=== PATIENT | female | born 1995 | race Two or more races ===

== ENCOUNTER 2017-02-16 12:15 | Emergency (ER) | payer MEDICAID, OTHER ==
[~2017-02-16] VITALS: Ht 162.6 cm; Wt 71.7 kg
--- NOTE | 2017-02-16 12:20 | NUR ---
PT TO ED ROOM 01. ABDOMINAL PAIN, NOTED SINCE 0600 AM, WITH ASS. NUASEA & VOMITING. A/A/O. NAQD. VS WNL. SEEN AND EVALUATED BY ED PROVIDER. SIDE RAISL UP. HOB ELEVATED. CONNECTED TO MONITOR.
[2017-02-16] MEDS ORDERED: ONDANSETRON HCL/PF 4 MG/2 ML VIAL ONE (12:44)
--- NOTE | 2017-02-16 12:49 | NUR ---
LINE STARTED ON R FA G 20. PT MEDICATED ORDERED
[2017-02-16 12:52] LABS: BASOPHILS % (AUTO) 0.2 % (0.0-2.0); EOSINOPHILS # (AUTO) 0.1 /CMM (0.0-0.7); EOSINOPHILS % (AUTO) 0.6 % (0.0-6.0); HEMATOCRIT 25 % (33-45); HEMOGLOBIN 7.9 g/dL (11.5-14.8); LYMPHOCYTES # (AUTO) 0.9 /CMM (0.8-4.8); LYMPHOCYTES % (AUTO) 8.2 % (20.0-44.0); MEAN CORPUSCULAR HEMOGLOBIN 21 PG (26.0-33.0); MEAN CORPUSCULAR HGB CONC 32 g/dl (31.0-36.0); MEAN CORPUSCULAR VOLUME 66 fL (82-100); MONOCYTES # (AUTO) 0.3 /CMM (0.1-1.30); MONOCYTES % (AUTO) 2.9 % (2.0-12.0); NEUTROPHILS # (AUTO) 9.9 /CMM (1.8-8.9); NEUTROPHILS % (AUTO) 88.1 % (43.0-81.0); PLATELET COUNT (AUTO) 248 /CMM (150-450); RDW COEFFICIENT OF VARIATION 20.2 (11.5-15.0); RED BLOOD CELL COUNT(AUTO) 3.76 MIL/uL (4.0-5.2); WHITE BLOOD COUNT (AUTO) 11.2 K/uL (4.3-11.0)
[2017-02-16 12:57] LABS: CALCIUM, SERUM 8.4 mg/dL (8.5-10.1); CREATININE 0.6 mg/dL (0.6-1.3); POTASSIUM 3.7 mmol/L (3.5-5.1)
[2017-02-16] MEDS ORDERED: ONDANSETRON HCL/PF - ER 4 MG/2 ML VIAL IV ONE (13:00)
[2017-02-16] MEDS ORDERED: IV NS 0.9% 1,000 ML BAG IV ONE (13:00)
[2017-02-16 13:12] LABS: BILIRUBIN,URINE Negative (NEGATIVE); BLOOD, URINE Negative Ery/uL (NEGATIVE); COLOR,URINE Yellow (YELLOW); KETONES,URINE Trace (NEGATIVE); LEUKOCYTE ESTERASE ,URINE Trace (NEGATIVE); NITRITE, URINE Positive (NEGATIVE); PROTEIN,URINE 30 mg/dl (NEGATIVE); UGLUCOSE Negative (NEGATIVE); UROBILINOGEN,URINE 0.2 EU/dL (0.2)
--- NOTE | 2017-02-16 13:12 | NUR ---
US AT BEDSIDE
[2017-02-16 13:13] LABS: APPEARANCE,URINE Cloudy (CLEAR)
[2017-02-16 13:21] LABS: BACTERIA,URINE Moderate /HPF (None Seen); RBC,URINE 0-3 /HPF (0-2); SQUAMOUS EPITHELIAL CELL,UR Few /HPF (None Seen); WBC,URINE 30-50 /HPF (0-3)
[2017-02-16 13:24] LABS: ALBUMIN 2.6 g/dL (3.4-5.0); BILIRUBIN,DIRECT 0.1 mg/dL (0.0-0.2); BILIRUBIN,TOTAL 0.2 mg/dL (0.2-1.0); TOTAL PROTEIN, SERUM 7.2 g/dL (6.4-8.2)
[2017-02-16] MEDS ORDERED: CEFAZOLIN 1 GM in IV D5W 50 ML IV STA (13:24)
[2017-02-16 13:31] LABS: BAND % (MANUAL) 2 % (0.0-5.0); LYMPHOCYTES % (MANUAL) 7 % (16-48); MONOCYTES % (MANUAL) 4 % (0-11.0); NEUTROPHILS % (MANUAL) 87 (42-76)
--- NOTE | 2017-02-16 13:32 | NUR ---
CALLED PHARMACY FOR ANCEF
--- NOTE | 2017-02-16 14:15 | NUR ---
[facility] L&D. TRANSFERRED LABORIST TO DR GUILLAUME.
--- NOTE | 2017-02-16 14:18 | NUR ---
PER DR GUILLAUME, CONTACTED DR VIVIAN ROBIN, P[facility] OBGYN
--- NOTE | 2017-02-16 14:21 | NUR ---
DR VIVIAN BOTELLO WOULD LIKE PATIENT ADMITTED AT [facility]
--- NOTE | 2017-02-16 14:23 | NUR ---
INITIATED CALL TO [facility] TRANSFER LINE, SPOKE WITH GLORIA. EXPECTING CALL BACK FROM [facility] AT [facility]
--- NOTE | 2017-02-16 14:23 | NUR ---
WILL FAX FACE SHEET AND CLINICALS TO [phone] ([facility])
--- NOTE | 2017-02-16 14:32 | NUR ---
Patient is resting comfortably in bed with eyes closed. Easily aroused. VSS
--- NOTE | 2017-02-16 15:02 | NUR ---
PT ACCEPTED AT [facility], WILL RECEIVE CALL BACK WITH PLACEMENT INFORMATION
--- NOTE | 2017-02-16 15:16 | NUR ---
PLACED S AMBULANCE ON WILL CALL WITH [facility]
--- NOTE | 2017-02-16 15:34 | NUR ---
REPORT GIVEN TO ALFIE MCGRAW C/S ROOM 3003 [phone]. [facility] ETA 20 MIN.
[2017-02-16 15:36] VITALS: BP 108/64
== END 2017-02-16 15:40 | disposition home or self-care (01) ==
LOC: ER 12:16
DX: O23.02 Infections of kidney in pregnancy, second trimester (principal); Z3A.23 23 weeks gestation of pregnancy
CPT/HCPCS: 36415; 76705-TC; 76805-TC; 80048-TC; 80076-TC; 81000-TC; 83690-TC; 84702-TC; 85025-TC; 86850-TC; 87086-TC; 87186-TC; A4606; J0690; J2405; J7030; J7060; Z7610

== ENCOUNTER 2018-09-18 17:52 | Emergency (ER) | payer SELFPAY ==
[~2018-09-18] VITALS: Ht 162.6 cm; Wt 74.8 kg
[2018-09-18 19:05] LABS: APPEARANCE,URINE Clear (CLEAR); BILIRUBIN,URINE Negative (NEGATIVE); BLOOD, URINE Moderate Ery/uL (NEGATIVE); COLOR,URINE Yellow (YELLOW); KETONES,URINE Trace (NEGATIVE); LEUKOCYTE ESTERASE ,URINE Trace (NEGATIVE); NITRITE, URINE Negative (NEGATIVE); PH,URINE 6.5 (5.0-8.0); PROTEIN,URINE 30 mg/dl (NEGATIVE); UGLUCOSE Negative (NEGATIVE); UROBILINOGEN,URINE 0.2 EU/dL (0.2)
[2018-09-18 19:28] LABS: BACTERIA,URINE Few /HPF (None Seen); SQUAMOUS EPITHELIAL CELL,UR Moderate /HPF (None Seen)
[2018-09-18 19:29] LABS: RBC,URINE 21-50 /HPF (0-2)
--- NOTE | 2018-09-18 19:30 | NUR ---
PT BIBS. C/O "BILATERAL FLANK PAIN AND DYSURIA X1 DAY" -SOB -N/V -DIZZINESS -ACUTE DISTRESS. AOX4. AMBULATORY W.STEADY GAIT.
--- NOTE | 2018-09-18 19:36 | NUR ---
URINE COLLECTED AND SENT TO LAB.
[2018-09-18] MEDS ORDERED: KETOROLAC TROMETHAMINE INJ 30 MG/ML VIAL IV ONE (20:00)
[2018-09-18] MEDS ORDERED: HYDROCODONE/APAP 5/325MG 1 EACH TABLET PO ONE (20:00)
[2018-09-18] MEDS ORDERED: KETOROLAC TROMETHAMINE 15 MG/ML VIAL ONE (20:07)
[2018-09-18] MEDS ORDERED: HYDROCODONE/APAP 5/325MG 1 EACH TABLET ONE (20:08)
[2018-09-18 21:01] LABS: BASOPHILS # (AUTO) 0.1 /CMM (0.0-0.2); BASOPHILS % (AUTO) 0.7 % (0.0-2.0); HEMATOCRIT 32 % (33-45); HEMOGLOBIN 9.9 g/dL (11.5-14.8); LYMPHOCYTES # (AUTO) 2.1 /CMM (0.8-4.8); LYMPHOCYTES % (AUTO) 21.2 % (20.0-44.0); MEAN CORPUSCULAR HGB CONC 31 g/dl (31.0-36.0); MEAN CORPUSCULAR VOLUME 67 fL (82-100); MONOCYTES # (AUTO) 0.4 /CMM (0.1-1.30); MONOCYTES % (AUTO) 4.2 % (2.0-12.0); NEUTROPHILS # (AUTO) 7.4 /CMM (1.8-8.9); NEUTROPHILS % (AUTO) 72.9 % (43.0-81.0); PLATELET COUNT (AUTO) 313 /CMM (150-450); WHITE BLOOD COUNT (AUTO) 10.1 K/uL (4.3-11.0)
[2018-09-18 21:19] LABS: CALCIUM, SERUM 9.1 mg/dL (8.5-10.1); CREATININE 0.8 mg/dL (0.6-1.3); POTASSIUM 3.2 mmol/L (3.5-5.1)
[2018-09-18 21:31] LABS: ALBUMIN 3.7 g/dL (3.4-5.0); BILIRUBIN,TOTAL 0.2 mg/dL (0.2-1.0); TOTAL PROTEIN, SERUM 8.1 g/dL (6.4-8.2)
[2018-09-18 22:16] LABS: EOSINOPHILS % (MANUAL) 1 % (0-4); LYMPHOCYTES % (MANUAL) 21 % (16-48); MONOCYTES % (MANUAL) 6 % (0-11.0); NEUTROPHILS % (MANUAL) 72 (42-76)
[2018-09-18 22:24] VITALS: BP 120/71
== END 2018-09-18 22:24 | disposition home or self-care (01) ==
LOC: ER 17:57
DX: N39.0 Urinary tract infection, site not specified (principal); D50.9 Iron deficiency anemia, unspecified
CPT/HCPCS: 36415; 80048-TC; 80076-TC; 81000-TC; 84703-TC; 85025-TC; 87086-TC; J1885

== ENCOUNTER 2018-11-10 17:36 | Emergency (ER) | payer SELFPAY ==
[~2018-11-10] VITALS: Ht 162.6 cm; Wt 80.3 kg
--- NOTE | 2018-11-10 17:51 | NUR ---
PT BIBSELF C/O H/A SINCE SAT, PT AAOX4, PT ON MONITOR, VSS, NAD NOTED, PENDING MD MORELAND
[2018-11-10] MEDS ORDERED: diphenhydrAMINE HCL 50 MG/ML VIAL ONE (18:21)
[2018-11-10] MEDS ORDERED: METOCLOPRAMIDE HCL 10 MG/2 ML VIAL ONE (18:22)
[2018-11-10] MEDS ORDERED: diphenhydrAMINE HCL 50 MG/ML VIAL IV ONE (18:30)
[2018-11-10] MEDS ORDERED: METOCLOPRAMIDE HCL 10 MG/2 ML VIAL IV ONE (18:30)
[2018-11-10] MEDS ORDERED: PROCHLORPERAZINE EDISYLATE 10 MG/2 ML VIAL IV ONE (18:30)
[2018-11-10] MEDS ORDERED: ONDANSETRON HCL/PF 4 MG/2 ML VIAL IVP ONE (18:30)
[2018-11-10] MEDS ORDERED: KETOROLAC TROMETHAMINE INJ 30 MG/ML VIAL IV ONE ×2 (18:30→20:00)
[2018-11-10 19:24] LABS: BASOPHILS % (AUTO) 0.6 % (0.0-2.0); EOSINOPHILS % (AUTO) 4.1 % (0.0-6.0); HEMATOCRIT 31 % (33-45); HEMOGLOBIN 9.9 g/dL (11.5-14.8); MEAN CORPUSCULAR HGB CONC 32 g/dl (31.0-36.0); MEAN CORPUSCULAR VOLUME 68 fL (82-100); MONOCYTES # (AUTO) 0.4 /CMM (0.1-1.30); MONOCYTES % (AUTO) 5.3 % (2.0-12.0); NEUTROPHILS # (AUTO) 4.9 /CMM (1.8-8.9); PLATELET COUNT (AUTO) 367 /CMM (150-450); RED BLOOD CELL COUNT(AUTO) 4.62 MIL/uL (4.0-5.2); WHITE BLOOD COUNT (AUTO) 7.7 K/uL (4.3-11.0)
[2018-11-10] MEDS ORDERED: IV NS 0.9% 1,000 ML BAG IV ONE (19:30)
--- NOTE | 2018-11-10 19:31 | NUR ---
REPORT GIVEN TO JEFF VICENTE FOR TAMMY
[2018-11-10 19:37] LABS: ALBUMIN 3.4 g/dL (3.4-5.0); BILIRUBIN,TOTAL 0.1 mg/dL (0.2-1.0); CALCIUM, SERUM 8.6 mg/dL (8.5-10.1); CREATININE 0.9 mg/dL (0.6-1.3); POTASSIUM 3.8 mmol/L (3.5-5.1); TOTAL PROTEIN, SERUM 7.7 g/dL (6.4-8.2)
[2018-11-10] MEDS ORDERED: KETOROLAC TROMETHAMINE INJ 30 MG/ML VIAL ONE (20:15)
[2018-11-10 21:12] VITALS: BP 133/72
--- NOTE | 2018-11-10 21:12 | NUR ---
Patient discharged to home in stable condition. Written and verbal after care instructions given. Patient verbalizes understanding of instruction. IV removed. Catheter intact and site benign. Pressure and 4x4 applied to site. No bleeding noted.
== END 2018-11-10 21:13 | disposition home or self-care (01) ==
LOC: ER 17:37
DX: R51 Headache (principal); D50.9 Iron deficiency anemia, unspecified
CPT/HCPCS: 36415; 80048; 80076; 84703; 85025; 96374; 96375; 99283; J1200; J1885; J2765; J7030

== ENCOUNTER 2022-07-25 19:54 | Emergency (ER) | payer SELFPAY ==
[~2022-07-25] VITALS: Ht 162.6 cm; Wt 74.8 kg
--- NOTE | 2022-07-25 20:35 | NUR ---
TO ER BED 10. BIBS C/O LEFT 5TH TOE PAIN S/P "DROPPED SOMTHING ON IT". PT IS ALERT AND ORIENTED. AMBULATORY W/ STEADY GAIT. CONNECTED TO MONITOR
[2022-07-25] MEDS: CYCLOBENZAPRINE 10 MG TABLET ONE (21:09)
[2022-07-25] MEDS: CYCLOBENZAPRINE 10 MG TABLET PO ONE (21:09)
[2022-07-25] MEDS ORDERED: IBUP-1953 PO (21:26)
[2022-07-25] MEDS ORDERED: TYL2T PO (21:26)
--- NOTE | 2022-07-25 21:56 | NUR ---
Patient discharged to home in stable condition. Written and verbal after care instructions given. Patient verbalizes understanding of instruction.
[2022-07-25 21:57] VITALS: BP 118/69
== END 2022-07-25 21:58 | disposition home or self-care (01) ==
LOC: ER 20:06
DX: S92.532A Displaced fracture of distal phalanx of left lesser toe(s), initial encounter for closed fracture (principal); S92.522A Displaced fracture of middle phalanx of left lesser toe(s), initial encounter for closed fracture; Z79.1 Long term (current) use of non-steroidal anti-inflammatories (NSAID); W04.XXXA Fall while being carried or supported by other persons, initial encounter; Y93.89 Activity, other specified; Y92.89 Other specified places as the place of occurrence of the external cause; Y99.8 Other external cause status
CPT/HCPCS: 73630-TC